=== PATIENT | male | born 1960 | race Caucasian/White ===

== ENCOUNTER → 2023-06-20 | Outpatient (CLI) | payer BC ==
[~2023-06-20] MED LIST: PROHANCE 279.3MG/ML 15ML VIAL ONE
== END ==
LOC: M PLAIMG 08:33
PROVIDERS: ATTEND Physician Assistant
DX: C61 Malignant neoplasm of prostate (principal)
CPT/HCPCS: 72197; A9576

== ENCOUNTER → 2024-06-24 | Outpatient (CLI) | payer MEDICARE | LOC: M PLAIMG 13:45 | PROVIDERS: ATTEND Physician Assistant | DX: C61 Malignant neoplasm of prostate (principal) | CPT/HCPCS: 72197; A9576 ==